=== PATIENT | female | born 1935 | race Caucasian/White ===

== ENCOUNTER 2017-03-12 19:38 | Inpatient (IN) ==
[~2017-03-12 19:38] MED LIST: *HR* Etomidate 20 MG/10 ML AMPUL IVP ONE; *HR* Rocuronium Bromide 100 MG/10 ML VIAL IVC ONE
[2017-03-12] MEDS ORDERED: Tetracaine/Benzocaine/Butamben 200MG/SPRAY (100SPY/BOT) ONE (19:57)
[2017-03-12] MEDS ORDERED: Tetracaine/Benzocaine/Butamben 200MG/SPRAY (100SPY/BOT) MM ONE (19:58)
[2017-03-12] MEDS ORDERED: Propofol 500 MG/50 ML INFUS..BTL ONE (20:21)
[2017-03-12] MEDS ORDERED: Propofol 500 MG/50 ML INFUS..BTL IVC SCH (20:30)
--- NOTE | 2017-03-12 20:38 | Emergency Department Note ---
Disposition Clinical Impression: Airway obstruction due to foreign body, Atrial fibrillation with rapid ventricular response Choking Qualifiers: Encounter type: initial encounter Qualified Code(s): T17.308A - Unspecified foreign body in larynx causing other injury, initial encounter Aspiration into airway Qualifiers: Encounter type: initial encounter Qualified Code(s): T17.908A - Unspecified foreign body in respiratory tract, part unspecified causing other injury, initial encounter Disposition: Admitted As Inpatient Condition: Critical Time of Disposition: 21:43 SOB HPI - General Chief Complaint: ED Shortness of Breath/Dyspnea Stated Complaint: choking/elevated HR Time Seen by Provider: 03/12/17 19:42 Source: patient, family, EMS Mode of arrival: EMS Limitations: physical limitation Nursing Notes Reviewed: Yes Vital Signs Reviewed: Yes - History of Present Illness 81-year-old female presents to the ED via EMS after choking episode. Prior to arrival patient was eating crabcakes, rice and broccoli and had a choking episode. Family reports she has a history of dysphasia difficulty with swallowing sometimes soft foods but also solid food. Per EMS and family reports she had a hard time speaking in the universal choking sign Heimlich maneuver was performed by the son and as well by EMS and reportedly a large piece of crab cake was successfully spit out. She continued to have difficulty breathing. EMS states her initial oxygen saturation was 70%. They performed 12 lead strip that also showed that she was in atrial fibrillation. She does have a history of this. On arrival here patient is on an oxymask maintaining 100% sitting up in no acute distress. She does have a stridor at rest with difficulty in speaking. No cyanosis. Lung sounds with bilateral wheezes and stridor. Oral examination showed some food particles that were successfully removed however she continue to have some strider. I attempted a flex bronchoscopy to evaluate which continued to show food particles in the oropharynx. We are unable to initially remove it with a suction [place]. After multiple attempts she continue to maintain 100% now on nasal cannula. Roughly 30 minutes into her observation she did desaturate and looked distressed , oxygen dropped to 70% and concern that may be the food particle had obstructed her airway. RSI performed with etomidate and rocuronium given, with CMAC I was able to visualize a large broccoli floret obstructing her airway, with Javier forceps was able to remove it in her oxygen saturation immediately improved. She was then intubated with a 7.5 endotracheal tube. EKG performed show that she was and atrial fibrillation with rapid ventricular response. She was placed on a cars and drip as well as propofol drip for sedation. We did not bolus to avoid hyptoension. Concern for aspiration she will likely require admission and likely bronchoscopy. Pt Subjective Complaint: shortness of breath - Related Data Allergies Allergy/AdvReac Type Severity Reaction Status Date / Time Sulfa (Sulfonamide Allergy See Verified 03/12/17 20:00 Antibiotics) Comments Limitations: ROS unobtainable due to patients medical condition Past Medical History - Past Medical History Attestation: Yes The following information was validated with the patient. Source: patient Medical history: Reports: atrial fibrillation, seizures Psychiatric history: Reports: no psych history - Social History Smoking Status: Never smoker Smokeless Tobacco Status: No Alcohol use: Reports: none Drug use: Reports: none Physical Exam - General Limitations: no limitations General appearance: alert, in distress (Moderate) - Head Head exam: atraumatic, normocephalic, normal inspection - Eye Eye exam: Present: normal appearance, PERRL, EOMI - ENT ENT exam: normal exam, normal oropharynx, other (Food particles in the oropharynx) - Neck Neck exam: Present: normal inspection, full ROM, trachea midline - Chest Chest inspection: Present: normal inspection, symmetric chest wall rise - Respiratory Respiratory exam: Present: normal lung sounds bilaterally, wheezes, stridor. Absent: respiratory distress (Initially no respiratory distress) - Cardiovascular Cardiovascular exam: Present: tachycardia, irregular rhythm, normal heart sounds - Abdominal Exam Abdominal exam: Present: normal bowel sounds - Neurological Exam Neurological exam: Present: alert, oriented X3 - Psychiatric Psychiatric exam: Present: normal affect, normal mood - Skin Skin exam: Present: warm, dry, intact, normal color. Absent: rash, cyanosis, diaphoresis Course - Reevaluation(s) Reevaluation #1: Patient was emergently intubated after desaturation and acute airway obstruction. There was a large broccoli floret seen obstructing her vocal cords. It was removed with forceps. She was then intubated without complications. Chest x-ray reveals adequate to placement. She is currently sedated and on a ventilator. She would need admission for concern of aspiration and further evaluation for possible bronchoscopy. She was also found incidentally and atrial fibrillation with rapid ventricular response. She was not given a bolus for placed on cars and trip, her heart rate has come down to the 110. She would need admission to the intensive care unit. No further questions for family. Time: 20:18 - Consultations Consultation #1: Spoke with on-call hospitalist gab Leiva to admit to intensive care unit for choking episode, airway obstruction from food, aspiration. No further orders at this time Time: 21:44 Vital Signs Temperature 97.7 F 03/12/17 19:41 Pulse Rate 140 03/12/17 19:41 Respiratory Rate 24 03/12/17 19:41 Blood Pressure 160/88 03/12/17 19:41 O2 Sat by Pulse Oximetry 88 03/12/17 19:41 Temperature 97.7 F 03/12/17 19:41 Pulse Rate 113 03/12/17 23:00 Respiratory Rate 14 03/12/17 20:25 Blood Pressure 142/84 03/12/17 23:00 O2 Sat by Pulse Oximetry 100 03/12/17 23:00 Oxygen Delivery Oxygen Delivery Ventilator Procedures - Foreign Body Removal Time Out Performed: No Site: oral Description of foreign body: other (Broccoli florettes) Technique: manual removal, removal with forceps (Javier) Confirmed by:: direct visualization Complications: none Post-procedure exam: normal BP, normal O2 sat - Intubation sedative: Etomidate Mg Given: 20 paralytic: Rocuronium Mg Given: 100 Laryngoscope: fiber optic video scope (CMAC) ET Tube Size: 7.5 ET Tube Uncuffed: No Tube Secured Depth (cm): 23 Tube Secured Location: lips Tube Placement Confirmation: visualized tube passing through cords, equal breath sounds bilaterally, no breath sounds over epigastrium, confirmation by capnometry Patient Tolerated Procedure: well, no complications, other (RIGHT UPPER LIP LAC) Intubation Complications: none, other (OBSTRUCTION) Shortness of Breath/Dyspnea - MDM Narrative Medical decision making narrative: Patient was discussed with my attending physician who agrees with ED management and final disposition. They independently evaluated the patient. Please refer to their attestation to this encounter for additional information. This note was generated by [employer] voice recognition software and as a result grammatical or spelling errors may occur using this program. - Medical Records Medical records reviewed: Yes I reviewed the patient's medical records. - Lab Data Lab results reviewed: Yes I reviewed the patient's lab results. Result diagrams: 03/12/17 20:33 03/12/17 20:33 Lab Results 03/12/17 03/12/17 03/12/17 Range/Units 20:33 20:33 20:33 WBC 9.9 (4.3-11.1) K/mcL RBC 4.18 (3.82-4.97) M/mcL Hgb 11.9 (11.5-15.4) g/dL Hct 37.2 (35.3-44.9) % MCV 89.0 (83.0-100.0) fL MCH 28.5 (28.0-33.3) pg MCHC 32.0 (31.6-35.5) g/dL RDW 13.2 (11.5-14.5) % Plt Count 174 (140-400) K/mcL MPV 11.9 (9.4-12.4) fL Immature Gran % 0.9 (0-4) % Seg Neutrophils % 82.3 % Lymphocytes % 11.9 % Monocytes % 3.0 % Eosinophils % 1.6 % Basophils % 0.3 % Neutrophils # 8.1 (1.6-8.9) K/mcL Lymphocytes # 1.2 (0.6-4.6) K/mcL Monocytes # 0.3 (0.0-1.3) K/mcL Eosinophils # 0.2 (0.0-0.6) K/mcL Basophils # 0.0 (0.0-0.2) K/mcL Sodium 139 (136-145) mEq/L Potassium 3.0 L (3.5-5.1) mEq/L Chloride 104 (98-107) mEq/L Carbon Dioxide 26 (23-29) mEq/L BUN 13 (8-23) mg/dL Creatinine 0.80 (0.60-1.20) mg/dL Est GFR ( Amer) > 60 (> 60) Est GFR (Non-Af Amer) > 60 (> 60) BUN/Creatinine Ratio 16 (6-26) Glucose 242 H (70-105) mg/dL Calculated Osmolality 296 (280-300) Lactic Acid 3.0 H (0.5-2.2) mmol/L Calcium 9.0 (8.6-10.3) mg/dL Troponin I (< 0.04) ng/mL 03/12/17 Range/Units 20:33 WBC (4.3-11.1) K/mcL RBC (3.82-4.97) M/mcL Hgb (11.5-15.4) g/dL Hct (35.3-44.9) % MCV (83.0-100.0) fL MCH (28.0-33.3) pg MCHC (31.6-35.5) g/dL RDW (11.5-14.5) % Plt Count (140-400) K/mcL MPV (9.4-12.4) fL Immature Gran % (0-4) % Seg Neutrophils % % Lymphocytes % % Monocytes % % Eosinophils % % Basophils % % Neutrophils # (1.6-8.9) K/mcL Lymphocytes # (0.6-4.6) K/mcL Monocytes # (0.0-1.3) K/mcL Eosinophils # (0.0-0.6) K/mcL Basophils # (0.0-0.2) K/mcL Sodium (136-145) mEq/L Potassium (3.5-5.1) mEq/L Chloride (98-107) mEq/L Carbon Dioxide (23-29) mEq/L BUN (8-23) mg/dL Creatinine (0.60-1.20) mg/dL Est GFR ( Amer) (> 60) Est GFR (Non-Af Amer) (> 60) BUN/Creatinine Ratio (6-26) Glucose (70-105) mg/dL Calculated Osmolality (280-300) Lactic Acid (0.5-2.2) mmol/L Calcium (8.6-10.3) mg/dL Troponin I < 0.03 (< 0.04) ng/mL - Radiology Data Radiology results reviewed: Yes I reviewed the patient's radiology results. Chest X-Ray 03/12/17 20:25 IMPRESSION: 1. Endotracheal tube 2 cm above the thong. 2. No acute process. D/ / Zack Batista MD / Zack Batista MD Interpreting Provider: Zack Batista MD - EKG Data EKG attestation: Yes I reviewed and interpreted this EKG. EKG results narrative: EKG performed 1945 atrial fibrillation with rapid ventricular response 1 25 bpm , no ST elevation, ST depression seen in V2 V3 and V4. There is no old EKG available for comparison. Critical Care Time Critical Care Time: Yes Total Critical Care Time: 60 Attestation: Critical care performed: Time is exclusive of separately billable procedures. Time includes: direct patient care, patient reassessment, coordination of patient care, interpretation of data (laboratory data, radiology data, and respiratory data), review of patient's medical records, medical consultation and documentation of patient care. Procedures included in critical care time: Procedures excluded from critical care time: Endotracheal intubation Attestation Statement - Attestation Attestation: I, Peter Richmond MD, personally evaluated this patient and discussed their management with the resident physician. I reviewed the resident's note and agree with the documented findings, medical decision making, and plan of care. 81-year-old female presents to the emergency department with difficulty breathing following a choking episode. Patient was apparently eating dinner restaurant when she became choked. She became unresponsive and was cyanotic. Heimlich was performed at the scene. Family reports she has a history of choking easily. On arrival here the patient is awake and alert with an oxygen saturation in the low to mid 90s on oxygen by mask. Patient continues to have stridor and is unable to talk and complains that it feels like the food is lodged in the area of the larynx. Difficulty swallowing. No vomiting. Patient is in atrial fibrillation with RVR. She does have a previous history of atrial fibrillation and is anticoagulated on Pradaxa. On examination patient is a well-developed thin elderly female in mild respiratory distress. She is alert with no cyanosis or diaphoresis. Patient does have small food particles throughout her mouth and throat. She was suctioned with removal of some of these particles but no change in her respiratory status. Breath sounds are equal bilaterally with stridor. No rales or wheezes noted. Heart is tachycardic and irregularly irregular. No peripheral cyanosis. We attempted visualization of the area with a flexible scope. There did appear to be a large green mass in the hypopharynx area. Some of movement of air noted around this area on expiration. Unable to suction this out. Patient developed increased stridor and increased difficulty breathing and her oxygen saturations began to drop. RSI was performed with etomidate and rocuronium. On direct visualization a large complete broccoli florette was removed from the vallecular area obstructing the cords. Patient was then intubated with a #7 endotracheal tube. Placed on propofol infusion for sedation. Chest x-ray shows endotracheal tube 2 cm above the thong, otherwise no acute abnormality. Labs reviewed. Patient was placed on a Cardizem infusion for the atrial fibrillation with RVR. The hospitalist, Dr. Serrano, was consulted and accepted admission of the patient.
[2017-03-12 20:40] LABS: Basophils % 0.3 %; Eosinophils # 0.2 K/mcL (0.0-0.6); Eosinophils % 1.6 %; Hematocrit 37.2 % (35.3-44.9); Hemoglobin 11.9 g/dL (11.5-15.4); Immature Granulocytes % 0.9 % (0-4); Lymphocytes # 1.2 K/mcL (0.6-4.6); Lymphocytes % 11.9 %; Mean Corpuscular Hemoglobin 28.5 pg (28.0-33.3); Mean Platelet Volume 11.9 fL (9.4-12.4); Monocytes # 0.3 K/mcL (0.0-1.3); Neutrophils # 8.1 K/mcL (1.6-8.9); Platelet Count 174 K/mcL (140-400); Red Blood Count 4.18 M/mcL (3.82-4.97); Red Cell Distribution Width 13.2 % (11.5-14.5); Segmented Neutrophils % 82.3 %
[2017-03-12] MEDS ORDERED: *HR* Etomidate 20 MG/10 ML AMPUL IVP ONE (20:50)
[2017-03-12] MEDS ORDERED: *HR* Rocuronium Bromide 50 MG/5 ML VIAL IVP ONE ×2 (20:51→20:52)
[2017-03-12 20:54] LABS: BUN/Creatinine Ratio 16 (6-26); Blood Urea Nitrogen 13 mg/dL (8-23); Carbon Dioxide 26 mEq/L (23-29); Chloride 104 mEq/L (98-107); Glucose 242 mg/dL (70-105); Osmolality,Calculated 296 (280-300); Sodium 139 mEq/L (136-145); eGFR For African Americans > 60 (> 60); eGFR For Non-African Americans > 60 (> 60)
[2017-03-12] MEDS ORDERED: Ampicillin/Sulbactam 1,500 MG in 0.9 % Sodium Chloride Mini Bag 100 ML IVPB ONE (21:41)
[2017-03-12] MEDS: dilTIAZem HCl 100 MG in D5% in Water 50 ML IVC SCH (21:56)
[2017-03-12] MEDS ORDERED: Naloxone 0.4 MG/ML INJ IVP PRN (23:50)
[2017-03-12] MEDS ORDERED: Acetaminophen 650 MG RECTAL SUPP RC PRN (23:55)
[2017-03-13 00:37] LABS: Alanine Aminotransferase 20 Units/L (7-52); Albumin 3.7 g/dL (3.5-5.7); Albumin/Globulin Ratio 1.3 (1.1-2.2); Alkaline Phosphatase 58 Units/L (34-104); Aspartate Amino Transferase 27 Units/L (13-39); BUN/Creatinine Ratio 16 (6-26); Bilirubin,Total 0.6 mg/dL (0.3-1.0); Blood Urea Nitrogen 13 mg/dL (8-23); Carbon Dioxide 26 mEq/L (23-29); Chloride 105 mEq/L (98-107); Globulin 2.8 g/dL (2.4-3.5); Glucose 214 mg/dL (70-105); Osmolality,Calculated 295 (280-300); Potassium 3.1 mEq/L (3.5-5.1); Sodium 139 mEq/L (136-145); Total Protein 6.5 g/dL (6.4-8.9); eGFR For African Americans > 60 (> 60); eGFR For Non-African Americans > 60 (> 60)
[2017-03-13] MEDS: FentaNYL (PF) 1,000 MCG in 0.9 % Sodium Chloride 80 ML IVC SCH ×2 (00:53→22:34)
[2017-03-13] MEDS: Ampicillin/Sulbactam 3,000 MG in 0.9 % Sodium Chloride Mini Bag 100 ML IVPB SCH ×3 (01:00→18:25)
--- NOTE | 2017-03-13 01:52 | Internal Med History&Physical ---
Date of Encounter: 03/12/17 Time of Encounter: 23:45 Assessment and Plan (1) Choking Current visit: Yes Status: Acute Pt was intubated and her respiratory parameter is well maintained with ventilator. - Pt may need swallow evaluation after extubation. Total critical care time 40 min including Hx, physical, review of test results and home medication, medical decision making. Qualifiers: Encounter type: initial encounter Qualified Code(s): T17.308A - Unspecified foreign body in larynx causing other injury, initial encounter (2) Airway obstruction due to foreign body Current visit: Yes Status: Acute Management as above. Will consult pulmonary to see if pt needs bronchoscope as ER physician said there are small pieces of food still in airway. (3) Aspiration into airway Current visit: Yes Status: Acute Will start Unasyn iv for aspiration pneumonia, f/u CBC. Qualifiers: Encounter type: initial encounter Qualified Code(s): T17.908A - Unspecified foreign body in respiratory tract, part unspecified causing other injury, initial encounter (4) Atrial fibrillation with rapid ventricular response Current visit: Yes Status: Acute Pt may have hx of A Fib as family said she has irregular heart beats and pt is on pradaxa as home med. Will cont Cardizem drip. Hold AC for possible bronchoscope. (5) DVT prophylaxis Current visit: Yes Status: Acute Pt is on pradaxa at home, hold pradaxa for possible bronchoscope. Last dose was AM 03/12/17. On EPCD Internal Medicine - H&P: HPI Chief complaint: Chocking Admitted From: Home Plans for Post Hospital Care: Home History of present illness: Ms. Garcia is a 81 year old female with Hx of "IgG4 autoimmune disease", "irregular heart beat", present to ER for choking on eating. Pt was intubated immediately in ER and Hx is obtained from daughter. Pt has chronic swallowing problem. Pt has sudden choking at 6:45pm, cannot talk and passed out. Ineffective with family member immediate chocking maneuver. Pt was sent to ER and was intubated. One large piece of Broccoli was removed from upper airway during intubation. Pt also shows A Fib RVR upon arrival. Cardizem drip started after intubation. Past Med Surg Social Fam HX - Past Medical History Medical history: atrial fibrillation, seizures Psychiatric history: no psych history - Social History Smoking Status: Never smoker Smokeless Tobacco Status: No Alcohol use: none Drug use: none - Family History Mother History Unknown: Yes Internal Medicine - H&P: Meds 3 Allergy/AdvReac Type Severity Reaction Status Date / Time Sulfa (Sulfonamide Allergy See Verified 03/12/17 20:00 Antibiotics) Comments ROS unobtainable: due to endotracheal tube All Systems PM: A 10-system review of systems was performed and is negative for pertinent findings except as documented above in the HPI. - Constitutional Vitals: Temp Pulse Resp BP Pulse Ox 96.5 F L 68 12 92/51 100 03/12/17 23:22 03/13/17 01:02 03/13/17 01:02 03/13/17 01:02 03/13/17 01:02 General appearance: Present: A&O X 0, no acute distress Exam: Intubated - Head Head exam: Present: atraumatic, normocephalic - Eye Eye exam: Present: PERRL, conjuntiva pink, sclera anicteric Pupils: Present: PERRL - Neck Neck exam general surgery: Present: supple, trachea midline. Absent: lymphadenopathy - Respiratory Respiratory exam: Present: CTAB. Absent: accessory muscle use, rales, rhonchi, wheezes - Cardiovascular Cardiovascular exam: Present: irregular rhythm, +S1, +S2, tachycardia. Absent: diastolic murmur, gallop, rubs, systolic murmur - GI/Abdominal GI/Abdominal exam: Present: normal bowel sounds, soft, no peritoneal signs. Absent: distended, tenderness - Extremities Exam Extremities exam: Present: warm, radial pulses palpable and symmetrical. Absent : calf tenderness, cyanotic, pedal edema - Neurological Exam Neurological exam: Absent: facial droop - Skin Skin exam: Present: dry, intact Internal Med - H&P Results - Labs CBC & Chem 7: 03/12/17 20:33 03/13/17 00:17 Labs: BMP 03/13/17 00:17 Sodium 139 Potassium 3.1 L Chloride 105 Carbon Dioxide 26 BUN 13 Creatinine 0.80 Glucose 214 H Calcium 9.0 Liver Function 03/13/17 Range/Units 00:17 Total Bilirubin 0.6 (0.3-1.0) mg/dL AST 27 (13-39) Units/L ALT 20 (7-52) Units/L Alkaline Phosphatase 58 (34-104) Units/L Albumin 3.7 (3.5-5.7) g/dL - EKG Data -: EKG Interpreted by Myself Rate: tachycardia (A fib RVR) - VTE Documentation of Mechanical Device: Intermittent pneumatic compression device
[2017-03-13] MEDS ORDERED: Potassium Chloride 40 MEQ, Lidocaine 1% 2 ML in D5% in Water 500 ML IVPB ONE (01:55)
[2017-03-13] MEDS ORDERED: 0.9 % Sodium Chloride 500 ML IVC ONE (02:16)
[2017-03-13] MEDS ORDERED: 0.9 % Sodium Chloride 500 ML ONE (02:18)
[2017-03-13 04:42] LABS: Basophils % 0.1 %; Eosinophils % 0.2 %; Immature Granulocytes % 0.4 % (0-4); Lymphocytes # 1.1 K/mcL (0.6-4.6); Lymphocytes % 12.4 %; Mean Corpuscular HGB Conc 31.5 g/dL (31.6-35.5); Mean Corpuscular Hemoglobin 27.8 pg (28.0-33.3); Mean Corpuscular Volume 88.2 fL (83.0-100.0); Mean Platelet Volume 11.8 fL (9.4-12.4); Monocytes # 0.7 K/mcL (0.0-1.3); Monocytes % 8.3 %; Neutrophils # 6.7 K/mcL (1.6-8.9); Platelet Count 146 K/mcL (140-400); Red Blood Count 3.74 M/mcL (3.82-4.97); Red Cell Distribution Width 13.3 % (11.5-14.5); Segmented Neutrophils % 78.6 %
[2017-03-13 04:44] LABS: Hemoglobin 10.4 g/dL (11.5-15.4)
[2017-03-13 04:58] LABS: Magnesium 1.6 mg/dL (1.6-2.6)
[2017-03-13 05:12] LABS: Thyroid Stimulating Hormone 4.049 mcIU/mL (0.340-5.600)
[2017-03-13] MEDS ORDERED: Ketorolac 15 MG/ML VIAL IVP PRN (11:15)
[2017-03-13] MEDS: *HR* Metoprolol 5 MG/5 ML VIAL IVP PRN (11:38)
--- NOTE | 2017-03-13 11:45 | Pulmonology Consult Note ---
Date of Encounter: 03/13/17 Time of Encounter: 07:05 Assessment and Plan (1) Acute respiratory failure Current Visit: Yes Status: Resolved Patient was intubated for airway protection and after bronchoscopy patient was extubated successfully. Patient needs to remain in ICU for close monitoring since she is still complaining of difficulty swallowing and concern about upper airway obstruction. Discussed with the daughter at the bedside. Qualifiers: Respiratory failure complication: unspecified whether with hypoxia or hypercapnia Qualified Code(s): J96.00 - Acute respiratory failure, unspecified whether with hypoxia or hypercapnia (2) Choking Current Visit: Yes Status: Chronic This need to be investigated especially with questionable Parkinson disease and patient will need swallowing evaluation. Qualifiers: Encounter type: initial encounter Qualified Code(s): T17.308A - Unspecified foreign body in larynx causing other injury, initial encounter (3) Aspiration into airway Current Visit: Yes Status: Resolved Qualifiers: Encounter type: initial encounter Qualified Code(s): T17.908A - Unspecified foreign body in respiratory tract, part unspecified causing other injury, initial encounter (4) Atrial fibrillation with rapid ventricular response Current Visit: Yes Status: Chronic Patient will be treated with metoprolol and resume her anticoagulation and correct electrolytes. (5) Hypokalemia Current Visit: Yes Status: Acute This is mild hypokalemia and replace electrolytes. History of Present Illness Consult date: 03/13/17 Requesting physician: Sandra Serrano Reason for consult: other (Critical care management) Chief complaint: Choking History of present illness: This is a pleasant 81-year-old female who was intubated after choking episode while she was eating and she is communicating through writing and also daughter at the bedside. Patient has questionable Parkinson disease and she has chronic atrial fibrillation. Patient has chronic swallowing problems and she had sudden choking and then they were attempted to remove broccoli from upper airway and she is complaining from chest pain from attempting Heimlich maneuver. Patient denies any fever or chills and there is no other significant complaints or problems at this time. According to the daughter patient sometimes does not talk because of the discomfort and pain in her throat area. Past Med Surg Social Fam HX - Past Medical History Medical history: atrial fibrillation, seizures Psychiatric history: no psych history - Social History Smoking Status: Never smoker Smokeless Tobacco Status: No Alcohol use: none Drug use: none - Family History Mother History Unknown: Yes Medications and Allergies Bisoprolol Fumarate 2.5 mg PO DAILY 03/13/17 [History] Budesonide [Rhinocort Allergy] 1 spr NS DAILY 03/13/17 [History] Calcium Carbonate [Tums] 1,000 mg PO DAILY 03/13/17 [History] Cholecalciferol (Vitamin D3) [Vitamin D] 1,000 unit PO DAILY 03/13/17 [History] Dabigatran Etexilate Mesylate [Pradaxa] 110 mg PO BID 03/13/17 [History] Travoprost [Travatan Z] 1 drop OP HS 03/13/17 [History] 3 Allergy/AdvReac Type Severity Reaction Status Date / Time Sulfa (Sulfonamide Allergy See Verified 03/12/17 20:00 Antibiotics) Comments All Systems: A 10-system review of systems was performed and is negative for pertinent findings except as documented above in the HPI. Physical Examination Vital Signs: Vital Signs, Last 4 Hours Temp Pulse Resp BP Pulse Ox 03/13/17 11:00 128 10 125/71 100 03/13/17 10:02 16 127/108 100 03/13/17 10:01 99 03/13/17 10:00 81 12 129/60 100 03/13/17 09:00 79 12 118/71 100 03/13/17 08:07 16 132/66 99 03/13/17 08:00 98.9 F 77 12 100/60 100 General appearance: appears uncomfortable Eyes: nonicteric ENT: oropharynx moist Neck: supple Effort: normal Inspection: normal Auscultation: bilateral: clear Percussion: bilateral: not dull Cardiovascular: irregular rhythm Gastrointestinal: normoactive bowel sounds, non-distended Extremities: no cyanosis, edema Musculoskeletal: other (Left shoulder deformity) normal mental status, non-focal exam mood appropriate Ventilator Settings Ventilator Settings: Ventilator Settings, Last 8 Hours Ventilator Mode CPAP Ventilator Mode CPAP Ventilator Mode VC+ Ventilator Mode VC+ Ventilator Mode VC+ Ventilator Mode VC+ Ventilator Tidal Volume 400 Setting Ventilator Tidal Volume 400 Setting Ventilator Tidal Volume 400 Setting Ventilator Tidal Volume 400 Setting Ventilator Respiratory Rate 12 Setting Ventilator Respiratory Rate 12 Setting Ventilator Respiratory Rate 12 Setting Ventilator Respiratory Rate 12 Setting Actual Respiratory Rate 17 Actual Respiratory Rate 12 Actual Respiratory Rate 12 Actual Respiratory Rate 15 Actual Respiratory Rate 12 Actual Respiratory Rate 12 Actual Respiratory Rate 12 Actual Respiratory Rate 12 Actual Respiratory Rate 12 Positive End Expiratory 5 Pressure Positive End Expiratory 5 Pressure Positive End Expiratory 5 Pressure Positive End Expiratory 5 Pressure Positive End Expiratory 5 Pressure Positive End Expiratory 5 Pressure Positive End Expiratory 5 Pressure Positive End Expiratory 5 Pressure Peak Inspiratory Airway 11 Pressure Peak Inspiratory Airway 26 Pressure Peak Inspiratory Airway 30 Pressure Peak Inspiratory Airway 21 Pressure Results - Laboratory Findings CBC and BMP: 03/13/17 04:33 03/13/17 10:47 Abnormal lab findings: Abnormal lab results RBC 3.74 M/mcL (3.82-4.97) L 03/13/17 04:33 Hgb 10.4 g/dL (11.5-15.4) L D 03/13/17 04:33 Hct 33.0 % (35.3-44.9) L 03/13/17 04:33 MCH 27.8 pg (28.0-33.3) L 03/13/17 04:33 MCHC 31.5 g/dL (31.6-35.5) L 03/13/17 04:33 Glucose 214 mg/dL (70-105) H 03/13/17 00:17 POC Glucose 198 (58-89) H 03/13/17 05:31 Lactic Acid 2.5 mmol/L (0.5-2.2) H 03/13/17 04:33 - Diagnostic Findings Chest x-ray: report reviewed, image reviewed - Clinical Findings Intake & Output: Intake & Output 03/12/17 03/13/17 03/13/17 23:59 07:59 15:59 Intake Total 1220 / 1220 1000 / 1000 Output Total 400 / 400 125 / 125 Balance 820 / 820 875 / 875 Weight 52.5 kg Consult Discharge Plan - Plan Referrals: NONE,PCP [Primary Care Provider] -
[2017-03-13 15:04] LABS: Appearance of Body Fluid Slightly Hazy (Clear); Volume of Body Fluid 7 mL
[2017-03-13] MEDS: dilTIAZem HCl 100 MG in D5% in Water 50 ML IVC SCH (17:43)
[2017-03-14] MEDS: Ampicillin/Sulbactam 3,000 MG in 0.9 % Sodium Chloride Mini Bag 100 ML IVPB SCH ×4 (00:42→18:18)
[2017-03-14 02:48] LABS: Hematocrit 33.8 % (35.3-44.9); Hemoglobin 11.1 g/dL (11.5-15.4); Mean Corpuscular HGB Conc 32.8 g/dL (31.6-35.5); Mean Corpuscular Hemoglobin 28.7 pg (28.0-33.3); Mean Corpuscular Volume 87.3 fL (83.0-100.0); Mean Platelet Volume 11.5 fL (9.4-12.4); Platelet Count 121 K/mcL (140-400); Red Blood Count 3.87 M/mcL (3.82-4.97); Red Cell Distribution Width 13.4 % (11.5-14.5)
[2017-03-14 03:06] LABS: BUN/Creatinine Ratio 12 (6-26); Blood Urea Nitrogen 9 mg/dL (8-23); Calcium 8.9 mg/dL (8.6-10.3); Carbon Dioxide 30 mEq/L (23-29); Chloride 106 mEq/L (98-107); Glucose 119 mg/dL (70-105); Osmolality,Calculated 288 (280-300); Potassium 3.5 mEq/L (3.5-5.1); Sodium 139 mEq/L (136-145); eGFR For African Americans > 60 (> 60); eGFR For Non-African Americans > 60 (> 60)
[2017-03-14] MEDS: *HR* Metoprolol 5 MG/5 ML VIAL IVP PRN (05:03)
[2017-03-14] MEDS: dilTIAZem HCl 100 MG in D5% in Water 50 ML IVC SCH (08:14)
--- NOTE | 2017-03-14 10:25 | Electrocardiograph Report ---
[address] [place], [place] [address] Test Date: 2017-03-12 Pat Name: Marlene Garcia Department: 102 Room: [facility] Gender: F Data Management Engineer: María Elena : 1935 Requested By: Nii Pedro Order Number: [id number] Reading MD: Gavin Granados MD Measurements Intervals [place] Rate: 125 P: MN: 0 QRS: -5 QRSD: 96 T: 30 QT: 343 QTc: 417 Interpretive Statements BASELINE ARTIFACT COMPLICATES ACCURATE INTERPRETATION ATRIAL FIBRILLATION WITH RAPID VENTRICULAR RESPONSE Electronically Signed On 03-14-2017 10:23:46 EST by Gavin Granados MD
[2017-03-14] MEDS: Potassium Chloride Elixir 20 MEQ/15 ML UDC PO SCH (10:27)
--- NOTE | 2017-03-14 12:13 | Pulmonology Progress Note ---
Date of Encounter: 03/14/17 Time of Encounter: 11:45 Assessment and Plan (1) Aspiration into airway Current Visit: Yes Status: Resolved Patient has high risk of recurrent aspiration will do modified barium swallow will follow speech recommendations , patient tolerated well the extubation no clinical evidence of upper airway obstruction. Qualifiers: Encounter type: initial encounter Qualified Code(s): T17.908A - Unspecified foreign body in respiratory tract, part unspecified causing other injury, initial encounter (2) Atrial fibrillation with rapid ventricular response Current Visit: Yes Status: Chronic Patient still on Cardizem drip since patient is not cleared PO will schedule lopressor 5 mg Q6hrly once she is cleared for PO will change to PO lopressor . (3) Acute respiratory failure Current Visit: Yes Status: Resolved Patient hypoxic respiratory failure contributed by some fluid overload diastolic dysfunction secondary to A fib with RVR if stable will start diuresing her Qualifiers: Respiratory failure complication: hypoxia Qualified Code(s): J96.01 - Acute respiratory failure with hypoxia (4) Hypokalemia Current Visit: Yes Status: Acute Will replace electrolytes . (5) DVT prophylaxis Current Visit: Yes Status: Acute will start on Heparin on discharge she should be discharged on pradaxa or if the acute situation is settled can start pradax as in patient. Objective PUL Vital signs: Last Vital Signs Temp 98.3 F 03/14/17 11:59 Pulse 85 03/14/17 10:24 Resp 12 03/14/17 10:24 BP 121/67 03/14/17 10:24 Pulse Ox 99 03/14/17 10:24 Results - Laboratory Findings CBC and BMP: 03/14/17 02:38 03/14/17 02:38 Abnormal lab findings: Abnormal lab results Hgb 11.1 g/dL (11.5-15.4) L 03/14/17 02:38 Hct 33.8 % (35.3-44.9) L 03/14/17 02:38 Plt Count 121 K/mcL (140-400) L 03/14/17 02:38 Carbon Dioxide 30 mEq/L (23-29) H 03/14/17 02:38 Glucose 119 mg/dL (70-105) H 03/14/17 02:38 POC Glucose 108 (58-89) H 03/14/17 11:20 Lactic Acid 2.5 mmol/L (0.5-2.2) H 03/13/17 04:33 Fluid Appearance Slightly Hazy (Clear) A 03/13/17 09:05 - Microbiology Findings Microbiology Findings: Microbiology, Last 48 Hours 03/13/17 09:05 Gram Stain - Final Right Lower Lobe Lung - Clinical Findings Intake & Output: Intake & Output 03/13/17 03/14/17 03/14/17 23:59 07:59 15:59 Intake Total 100 / 100 1200 / 1200 43 / 43 Output Total 925 / 925 2200 / 2200 1000 / 1000 Balance -825 / -825 -1000 / -1000 -957 / -957 - VTE Documentation of Mechanical Device: Intermittent pneumatic compression device Consult Discharge Plan - Plan Referrals: NONE,PCP [Primary Care Provider] -
[2017-03-14] MEDS: *HR* Metoprolol 5 MG/5 ML VIAL IVP SCH ×2 (12:49→18:45)
[2017-03-14] MEDS: *HR* Heparin 5,000 UNIT/ML VIAL SQ SCH (18:45)
[2017-03-15] MEDS: *HR* Metoprolol 5 MG/5 ML VIAL IVP SCH ×2 (00:22→05:30)
[2017-03-15] MEDS: Ampicillin/Sulbactam 3,000 MG in 0.9 % Sodium Chloride Mini Bag 100 ML IVPB SCH ×3 (00:22→12:59)
[2017-03-15 05:28] LABS: Basophils % 0.4 %; Eosinophils # 0.3 K/mcL (0.0-0.6); Hematocrit 34.7 % (35.3-44.9); Immature Granulocytes % 0.4 % (0-4); Lymphocytes # 0.7 K/mcL (0.6-4.6); Lymphocytes % 10.6 %; Mean Corpuscular HGB Conc 31.7 g/dL (31.6-35.5); Mean Corpuscular Hemoglobin 27.6 pg (28.0-33.3); Monocytes # 0.6 K/mcL (0.0-1.3); Monocytes % 9.2 %; Neutrophils # 5.1 K/mcL (1.6-8.9); Platelet Count 128 K/mcL (140-400); Red Blood Count 3.99 M/mcL (3.82-4.97); Red Cell Distribution Width 13.4 % (11.5-14.5); Segmented Neutrophils % 75.4 %
[2017-03-15] MEDS: *HR* Heparin 5,000 UNIT/ML VIAL SQ SCH ×2 (05:36→18:01)
[2017-03-15 05:41] LABS: BUN/Creatinine Ratio 12 (6-26); Blood Urea Nitrogen 8 mg/dL (8-23); Calcium 8.4 mg/dL (8.6-10.3); Carbon Dioxide 28 mEq/L (23-29); Chloride 103 mEq/L (98-107); Glucose 103 mg/dL (70-105); Osmolality,Calculated 281 (280-300); Potassium 3.4 mEq/L (3.5-5.1); Sodium 136 mEq/L (136-145); eGFR For African Americans > 60 (> 60); eGFR For Non-African Americans > 60 (> 60)
--- NOTE | 2017-03-15 06:59 | Pulmonology Progress Note ---
<GeorgeRonn lee - Last Filed: 03/15/17 13:01> Date of Encounter: 03/15/17 Time of Encounter: 06:58 Assessment and Plan (1) Aspiration into airway Current Visit: Yes Status: Resolved Patient choked on food at home prompting admission treating for aspiration pneumonia with Unasyn day 3/ Speech on board Currently on Advnaced soft diet with nectar thickened liquids Plan: continue diet Speech on board appreciate any recommendations continue abx Qualifiers: Encounter type: initial encounter Qualified Code(s): T17.908A - Unspecified foreign body in respiratory tract, part unspecified causing other injury, initial encounter (2) Atrial fibrillation with rapid ventricular response Current Visit: Yes Status: Chronic Pt started on cardiazem drip. Drip stopped yesterday now just on metoprolol for rate control Plan: Convert IV metoprolol to PO (3) Acute respiratory failure Current Visit: Yes Status: Resolved likley 2/2 to aspiration/airway obstruction from choking episode complicated by acute diastolic dysfunction 2/2 a fib c RVR. Qualifiers: Respiratory failure complication: hypoxia Qualified Code(s): J96.01 - Acute respiratory failure with hypoxia (4) Hypokalemia Current Visit: Yes Status: Acute Patient found to by hypokalemic on admission to 3.0 K supplementation initiated. K 3.4 this morning. Plan: continue to supplement as needed (5) DVT prophylaxis Current Visit: Yes Status: Acute Pt on SubQ heparin Plan: continue sub Q heparin Restarted patient's home Pradaxa. Subjective Principal diagnosis: Choking/aspiration, Afib Interval history: 81F c PMHx a fib, seizures, possible parkinson's disease reports to [facility] for episode of choking/aspiration leading to acute respiratory failure, and a fib with RVR. Today patient was cleared for mechanical soft diet with nectar thick liquids. Her HR is well controlled on oral medications. She is stable for transfer out of the ICU. Objective PUL Vital signs: Last Vital Signs Temp 97.6 F 03/15/17 03:55 Pulse 74 03/15/17 06:00 Resp 18 03/15/17 06:00 BP 128/105 03/15/17 00:35 Pulse Ox 90 03/15/17 06:00 General appearance: no acute distress Eyes: nonicteric ENT: oropharynx moist, other (voice hoarse) Neck: supple Effort: normal Auscultation: bilateral: clear Cardiovascular: irregular rhythm Gastrointestinal: normoactive bowel sounds, soft, non-tender, non-distended Integumentary: normal Extremities: no cyanosis Musculoskeletal: no deformities normal mental status, non-focal exam mood appropriate, affect normal Results - Laboratory Findings CBC and BMP: 03/15/17 05:08 03/15/17 05:08 Abnormal lab findings: Abnormal lab results Hgb 11.0 g/dL (11.5-15.4) L 03/15/17 05:08 Hct 34.7 % (35.3-44.9) L 03/15/17 05:08 MCH 27.6 pg (28.0-33.3) L 03/15/17 05:08 Plt Count 128 K/mcL (140-400) L 03/15/17 05:08 Potassium 3.4 mEq/L (3.5-5.1) L 03/15/17 05:08 POC Glucose 108 (58-89) H 03/15/17 05:39 Lactic Acid 2.5 mmol/L (0.5-2.2) H 03/13/17 04:33 Calcium 8.4 mg/dL (8.6-10.3) L 03/15/17 05:08 Fluid Appearance Slightly Hazy (Clear) A 03/13/17 09:05 - Microbiology Findings Microbiology Findings: Microbiology, Last 48 Hours 03/13/17 09:05 Respiratory Culture - Preliminary Right Lower Lobe Lung Normal upper respiratory tract elaine. No apparent pathogens isolated. 03/13/17 09:05 Gram Stain - Final Right Lower Lobe Lung - Clinical Findings Intake & Output: Intake & Output 03/14/17 03/14/17 03/15/17 15:59 23:59 07:59 Intake Total 1143 / 1143 100 / 100 1200 / 1200 Output Total 1175 / 1175 0 / 0 0 / 0 Balance -32 / -32 100 / 100 1200 / 1200 Weight 53.9 kg - VTE Documentation of Mechanical Device: Intermittent pneumatic compression device Consult Discharge Plan - Plan Referrals: NONE,PCP [Primary Care Provider] - <Sandoval Zaidi - Last Filed: 03/15/17 20:55> Date of Encounter: 03/15/17 Assessment and Plan (1) Aspiration into airway Current Visit: Yes Status: Resolved Qualifiers: Encounter type: initial encounter Qualified Code(s): T17.908A - Unspecified foreign body in respiratory tract, part unspecified causing other injury, initial encounter (2) Atrial fibrillation with rapid ventricular response Current Visit: Yes Status: Chronic (3) Acute respiratory failure Current Visit: Yes Status: Resolved Qualifiers: Respiratory failure complication: hypoxia Qualified Code(s): J96.01 - Acute respiratory failure with hypoxia (4) Hypokalemia Current Visit: Yes Status: Acute (5) DVT prophylaxis Current Visit: Yes Status: Acute Objective PUL Vital signs: Last Vital Signs Temp 97.9 F 03/15/17 19:54 Pulse 80 03/15/17 19:54 Resp 16 03/15/17 19:54 BP 137/71 03/15/17 19:54 Pulse Ox 94 03/15/17 19:54 Results - Laboratory Findings CBC and BMP: 03/15/17 05:08 03/15/17 05:08 Abnormal lab findings: Abnormal lab results Hgb 11.0 g/dL (11.5-15.4) L 03/15/17 05:08 Hct 34.7 % (35.3-44.9) L 03/15/17 05:08 MCH 27.6 pg (28.0-33.3) L 03/15/17 05:08 Plt Count 128 K/mcL (140-400) L 03/15/17 05:08 Potassium 3.4 mEq/L (3.5-5.1) L 03/15/17 05:08 POC Glucose 124 (58-89) H 03/15/17 11:38 Lactic Acid 2.5 mmol/L (0.5-2.2) H 03/13/17 04:33 Calcium 8.4 mg/dL (8.6-10.3) L 03/15/17 05:08 Fluid Appearance Slightly Hazy (Clear) A 03/13/17 09:05 - Microbiology Findings Microbiology Findings: Microbiology, Last 48 Hours 03/13/17 09:05 Respiratory Culture - Final Right Lower Lobe Lung Normal upper respiratory tract elaine. No apparent pathogens isolated. - Clinical Findings Intake & Output: Intake & Output 03/15/17 03/15/17 03/15/17 07:59 15:59 23:59 Intake Total 1200 / 1200 1220 / 1220 0 / 0 Output Total 0 / 0 300 / 300 0 / 0 Balance 1200 / 1200 920 / 920 0 / 0 Weight 53.9 kg 54 kg - Attending Attestation I saw the patient with the resident agree with History and Physical exam findings. Labs and Radiology were reviewed POTAT[employer]ER: Patient is conscious oriented x3 following commands NECK : No JVD appreciated Pulmonary : Patient hypoxic respiratory failure is resolved patient currently on room air Cardiac : Hemodynamically stable . Atrial fibrillation on PO medications Nutrition/GI: Patient is on thickened diet according to speech recommendations Renal : Labs reviewed Heme onc : no acute issues ID : Will deescalate antibiotics Musculo skeletal / skin issues : No acute issues Disposition : Will shift to Medical telemetry , will need PT/OT evaluation before discharge Code status: Full Code Family/POA: Daughter .
[2017-03-15] MEDS ORDERED: Pantoprazole 40 MG VIAL IVP SCH (07:30)
[2017-03-15] MEDS: Potassium Chloride Elixir 20 MEQ/15 ML UDC PO SCH (09:13)
[2017-03-15] MEDS ORDERED: *HR* Dabigatran 75 MG CAPSULE PO SCH (11:00)
[2017-03-15] MEDS: dilTIAZem HCl 100 MG in D5% in Water 50 ML IVC SCH ×2 (13:51→21:59)
[2017-03-15] MEDS ORDERED: Ampicillin/Sulbactam 3,000 MG in 0.9 % Sodium Chloride Mini Bag 100 ML IVPB SCH (18:20)
[2017-03-15] MEDS ORDERED: Ketorolac 15 MG/ML VIAL IVP PRN (18:23)
[2017-03-15] MEDS ORDERED: Naloxone 0.4 MG/ML INJ IVP PRN (18:23)
[2017-03-15] MEDS ORDERED: Acetaminophen 650 MG RECTAL SUPP RC PRN (18:23)
[2017-03-15] MEDS: *HR* Dabigatran 75 MG CAPSULE PO SCH (21:53)
[2017-03-16] MEDS ORDERED: *HR* Heparin 5,000 UNIT/ML VIAL SQ SCH (06:00)
[2017-03-16 06:58] LABS: BUN/Creatinine Ratio 11 (6-26); Blood Urea Nitrogen 7 mg/dL (8-23); Calcium 8.6 mg/dL (8.6-10.3); Carbon Dioxide 31 mEq/L (23-29); Chloride 104 mEq/L (98-107); Glucose 131 mg/dL (70-105); Osmolality,Calculated 292 (280-300); Sodium 141 mEq/L (136-145); eGFR For African Americans > 60 (> 60); eGFR For Non-African Americans > 60 (> 60)
[2017-03-16 07:23] LABS: Basophils % 0.3 %; Eosinophils # 0.3 K/mcL (0.0-0.6); Eosinophils % 4.9 %; Hematocrit 35.2 % (35.3-44.9); Hemoglobin 11.4 g/dL (11.5-15.4); Immature Granulocytes % 0.2 % (0-4); Lymphocytes # 0.9 K/mcL (0.6-4.6); Lymphocytes % 14.7 %; Mean Corpuscular HGB Conc 32.4 g/dL (31.6-35.5); Mean Corpuscular Hemoglobin 27.9 pg (28.0-33.3); Mean Corpuscular Volume 86.3 fL (83.0-100.0); Mean Platelet Volume 12.4 fL (9.4-12.4); Monocytes # 0.6 K/mcL (0.0-1.3); Monocytes % 9.3 %; Neutrophils # 4.2 K/mcL (1.6-8.9); Platelet Count 138 K/mcL (140-400); Red Blood Count 4.08 M/mcL (3.82-4.97); Red Cell Distribution Width 13.2 % (11.5-14.5); Segmented Neutrophils % 70.6 %
[2017-03-16] MEDS: Pantoprazole 40 MG VIAL IVP SCH (09:22)
[2017-03-16] MEDS: *HR* Dabigatran 75 MG CAPSULE PO SCH (09:22)
[2017-03-16] MEDS: Potassium Chloride Elixir 20 MEQ/15 ML UDC PO SCH (09:22)
[2017-03-16] MEDS: dilTIAZem HCl 100 MG in D5% in Water 50 ML IVC SCH (12:00)
[2017-03-16] MEDS: Ampicillin/Sulbactam 3,000 MG in 0.9 % Sodium Chloride Mini Bag 100 ML IVPB SCH (16:50)
[2017-03-16] MEDS: *HR* Dabigatran 150 MG CAPSULE PO SCH (17:47)
--- NOTE | 2017-03-16 19:59 | Internal Med Progress Note ---
Date of Encounter: 03/16/17 Time of Encounter: 19:57 (Seen earlier this am) - Assessment and plan (1) Aspiration pneumonia Current Visit: Yes Status: Acute Assessment and plan: Continue current antibiotic. BAL cx neg. Qualifiers: Aspiration pneumonia type: due to regurgitated food Laterality: bilateral Lung location: unspecified part of lung Qualified Code(s): J69.0 - Pneumonitis due to inhalation of food and vomit Code(s): J69.0 - Pneumonitis due to inhalation of food and vomit (2) Aspiration into airway Current Visit: Yes Status: Resolved Assessment and plan: Continue soft diet and nectar thickened liquids Qualifiers: Encounter type: initial encounter Qualified Code(s): T17.908A - Unspecified foreign body in respiratory tract, part unspecified causing other injury, initial encounter (3) Atrial fibrillation with rapid ventricular response Current Visit: Yes Status: Chronic Assessment and plan: Change cardizem to Metoprolol. Pradaxa restarted before transfer from ICU. Stop SQ heparin (4) Hypokalemia Current Visit: Yes Status: Acute Assessment and plan: Replaced. Recheck K+ in am along with Mag - Time Spent With Patient Greater than 35 minutes - Subjective Interval history: Transfered to [facility] from ICU this am after admission for Aspiration PNA and A-Fib RVR . Afib rate controlled now and breathing more comfortably - Constitutional Vitals: Temp Pulse Resp BP Pulse Ox 98.1 F 67 15 134/72 93 03/16/17 15:04 03/16/17 15:04 03/16/17 15:04 03/16/17 15:04 03/16/17 15:04 General appearance: Present: A&O X 0, no acute distress - Head Head exam: Present: atraumatic, normal inspection, normocephalic - Eye Eye exam: Present: EOMI, PERRL, conjuntiva pink, sclera anicteric. Absent: conjunctival injection, scleral icterus Pupils: Present: PERRL - Neck Neck exam general surgery: Present: supple, trachea midline. Absent: lymphadenopathy - Respiratory Respiratory exam: Absent: accessory muscle use, rales, rhonchi, wheezes Additional comments: Coarse lung sounds with scattered rales. - Cardiovascular Cardiovascular exam: Present: RRR, +S1, +S2. Absent: diastolic murmur, gallop, rubs, systolic murmur - GI/Abdominal GI/Abdominal exam: Present: normal bowel sounds, soft, no peritoneal signs. Absent: distended, tenderness - Extremities Exam Extremities exam: Present: warm, radial pulses palpable and symmetrical. Absent : calf tenderness, cyanotic, pedal edema - Neurological Exam Neurological exam: Present: CN II-XII intact, oriented X3, no focal deficits. Absent: pronater drift, facial droop, speech deficit - Skin Skin exam: Present: dry, intact Internal Medicine: Result - Labs CBC & Chem 7: 03/16/17 06:09 03/16/17 16:21 Labs: Short CBC 03/16/17 Range/Units 06:09 WBC 5.9 (4.3-11.1) K/mcL Hgb 11.4 L (11.5-15.4) g/dL Hct 35.2 L (35.3-44.9) % Plt Count 138 L (140-400) K/mcL Neutrophils # 4.2 (1.6-8.9) K/mcL BMP 03/16/17 03/16/17 06:09 16:21 Sodium 141 Potassium 3.0 L 3.4 L Chloride 104 Carbon Dioxide 31 H BUN 7 L Creatinine 0.64 Glucose 131 H Calcium 8.6 - VTE Documentation of Mechanical Device: Intermittent pneumatic compression device Consult Discharge Plan - Plan Referrals: NONE,PCP [Primary Care Provider] -
[2017-03-16] MEDS ORDERED: *HR* Dabigatran 150 MG CAPSULE PO SCH (21:00)
[2017-03-17] MEDS: Ampicillin/Sulbactam 3,000 MG in 0.9 % Sodium Chloride Mini Bag 100 ML IVPB SCH ×5 (00:30→23:24)
[2017-03-17 05:48] LABS: Basophils % 0.4 %; Eosinophils # 0.3 K/mcL (0.0-0.6); Eosinophils % 5.6 %; Hematocrit 34.2 % (35.3-44.9); Hemoglobin 11.1 g/dL (11.5-15.4); Immature Granulocytes % 0.4 % (0-4); Lymphocytes % 18.4 %; Mean Corpuscular HGB Conc 32.5 g/dL (31.6-35.5); Mean Corpuscular Hemoglobin 27.6 pg (28.0-33.3); Mean Corpuscular Volume 85.1 fL (83.0-100.0); Mean Platelet Volume 11.7 fL (9.4-12.4); Monocytes # 0.5 K/mcL (0.0-1.3); Monocytes % 9.1 %; Neutrophils # 3.4 K/mcL (1.6-8.9); Platelet Count 159 K/mcL (140-400); Red Blood Count 4.02 M/mcL (3.82-4.97); Red Cell Distribution Width 13.2 % (11.5-14.5); Segmented Neutrophils % 66.1 %
[2017-03-17 06:02] LABS: BUN/Creatinine Ratio 8 (6-26); Blood Urea Nitrogen 5 mg/dL (8-23); Calcium 8.7 mg/dL (8.6-10.3); Carbon Dioxide 30 mEq/L (23-29); Chloride 105 mEq/L (98-107); Glucose 122 mg/dL (70-105); Osmolality,Calculated 289 (280-300); Potassium 3.2 mEq/L (3.5-5.1); Sodium 140 mEq/L (136-145); eGFR For African Americans > 60 (> 60); eGFR For Non-African Americans > 60 (> 60)
[2017-03-17] MEDS: Potassium Chloride Elixir 20 MEQ/15 ML UDC PO SCH (09:45)
[2017-03-17] MEDS: *HR* Dabigatran 75 MG CAPSULE PO SCH ×2 (09:45→18:52)
[2017-03-17] MEDS: Pantoprazole 40 MG VIAL IVP SCH (09:45)
[2017-03-17] MEDS ORDERED: Potassium Chloride 40 MEQ, Lidocaine 1% 2 ML in D5% in Water 500 ML IVPB ONE (14:38)
--- NOTE | 2017-03-17 21:23 | Internal Med Progress Note ---
Date of Encounter: 03/17/17 Time of Encounter: 21:19 (Seen earlier this afternoon) - Assessment and plan (1) Aspiration pneumonia Current Visit: Yes Status: Acute Assessment and plan: Continue current antibiotic. BAL cx neg. 5 day course of Unasyn per pulm note. Likely she will need Augmentin at d/c for total 10-14 day course. Qualifiers: Aspiration pneumonia type: due to regurgitated food Laterality: bilateral Lung location: unspecified part of lung Qualified Code(s): J69.0 - Pneumonitis due to inhalation of food and vomit Code(s): J69.0 - Pneumonitis due to inhalation of food and vomit (2) Aspiration into airway Current Visit: Yes Status: Resolved Assessment and plan: Continue soft diet and nectar thickened liquids Qualifiers: Encounter type: initial encounter Qualified Code(s): T17.908A - Unspecified foreign body in respiratory tract, part unspecified causing other injury, initial encounter (3) Atrial fibrillation with rapid ventricular response Current Visit: Yes Status: Chronic Assessment and plan: Change cardizem to Metoprolol. Pradaxa restarted before transfer from ICU. (4) Hypokalemia Current Visit: Yes Status: Acute Assessment and plan: Replaced. Recheck K+ in am along with Mag - Subjective Interval history: Transfered to [facility] from ICU yesterday after admission for Aspiration PNA and A- Fib RVR . She had an episode of choking and ultimately required intubation and transfer to the ICU. While in ICU she developed Afib with RVR. She remains rate controlled now and breathing is more comfortably but has severe upper respiratory congestion. She normally take Rhinocort at home and this was d/d on admission to the ICU. Rhinocort/Nasocort restarted - Constitutional Vitals: Temp Pulse Resp BP Pulse Ox 97.9 F 83 12 151/71 93 03/17/17 18:50 03/17/17 18:50 03/17/17 18:50 03/17/17 18:50 03/17/17 18:50 General appearance: Present: A&O X 0, mild distress - Head Head exam: Present: atraumatic, normocephalic - Eye Eye exam: Present: PERRL, conjuntiva pink, sclera anicteric Pupils: Present: PERRL - Neck Neck exam general surgery: Present: supple, trachea midline. Absent: lymphadenopathy - Respiratory Respiratory exam: Present: CTAB. Absent: accessory muscle use, rales, rhonchi, wheezes - Cardiovascular Cardiovascular exam: Present: RRR, +S1, +S2, tachycardia. Absent: diastolic murmur, gallop, rubs, systolic murmur - GI/Abdominal GI/Abdominal exam: Present: normal bowel sounds, soft, no peritoneal signs. Absent: distended, tenderness - Extremities Exam Extremities exam: Present: warm. Absent: calf tenderness, cyanotic, pedal edema - Neurological Exam Neurological exam: Present: CN II-XII intact, oriented X3, no focal deficits. Absent: pronater drift, facial droop, speech deficit - Skin Skin exam: Present: dry, intact Internal Medicine: Result - Labs CBC & Chem 7: 03/17/17 05:16 03/17/17 05:16 Labs: Short CBC 03/17/17 Range/Units 05:16 WBC 5.2 (4.3-11.1) K/mcL Hgb 11.1 L (11.5-15.4) g/dL Hct 34.2 L (35.3-44.9) % Plt Count 159 (140-400) K/mcL Neutrophils # 3.4 (1.6-8.9) K/mcL BMP 03/17/17 05:16 Sodium 140 Potassium 3.2 L Chloride 105 Carbon Dioxide 30 H BUN 5 L Creatinine 0.64 Glucose 122 H Calcium 8.7 - VTE Documentation of Mechanical Device: Intermittent pneumatic compression device Consult Discharge Plan - Plan Referrals: NONE,PCP [Primary Care Provider] -
[2017-03-18] MEDS: Ampicillin/Sulbactam 3,000 MG in 0.9 % Sodium Chloride Mini Bag 100 ML IVPB SCH ×3 (05:53→19:00)
[2017-03-18] MEDS: Potassium Chloride Elixir 20 MEQ/15 ML UDC PO SCH (09:21)
[2017-03-18] MEDS: Pantoprazole 40 MG VIAL IVP SCH (09:21)
[2017-03-18] MEDS: *HR* Dabigatran 75 MG CAPSULE PO SCH ×2 (09:22→18:59)
[2017-03-18] MEDS: Fluticasone Propionate Nasal 50 MCG/SPRAY BOTTLE NS SCH (09:22)
[2017-03-18] MEDS ORDERED: Potassium Chloride 40 MEQ, Lidocaine 1% 2 ML in D5% in Water 500 ML IVPB ONE (11:00)
--- NOTE | 2017-03-18 15:23 | Internal Med Progress Note ---
Date of Encounter: 03/18/17 Time of Encounter: 15:21 - Assessment and plan (1) Aspiration pneumonia Current Visit: Yes Status: Acute Assessment and plan: Continue current antibiotic. BAL cx neg. 5 day course of Unasyn per pulm note. Likely she will need Augmentin at d/c for total 10-14 day course. Start Augmentin tomorrow Qualifiers: Aspiration pneumonia type: due to regurgitated food Laterality: bilateral Lung location: unspecified part of lung Qualified Code(s): J69.0 - Pneumonitis due to inhalation of food and vomit Code(s): J69.0 - Pneumonitis due to inhalation of food and vomit (2) Aspiration into airway Current Visit: Yes Status: Resolved Qualifiers: Encounter type: initial encounter Qualified Code(s): T17.908A - Unspecified foreign body in respiratory tract, part unspecified causing other injury, initial encounter (3) Atrial fibrillation with rapid ventricular response Current Visit: Yes Status: Chronic Assessment and plan: Change cardizem to Metoprolol. Pradaxa restarted before transfer from ICU. Rate controlled. (4) Hypokalemia Current Visit: Yes Status: Acute Assessment and plan: Replaced. Recheck K+ in am along with Mag. - Subjective Interval history: Transfered to [facility] from ICU yesterday after admission for Aspiration PNA and A- Fib RVR . She had an episode of choking and ultimately required intubation and transfer to the ICU. While in ICU she developed Afib with RVR. She remains rate controlled now and breathing is more comfortably but has severe upper respiratory congestion. She normally take Rhinocort at home and this was d/d on admission to the ICU. Rhinocort/Nasocort restarted. She is much less congested today and states she feel better overall. She is breathing comfortably. - Constitutional Vitals: Temp Pulse Resp BP Pulse Ox 97.9 F 60 14 149/80 95 03/18/17 15:05 03/18/17 15:05 03/18/17 15:05 03/18/17 15:05 03/18/17 15:05 General appearance: Present: A&O X 0, mild distress, no acute distress, answers questions appropriately - Head Head exam: Present: atraumatic, normocephalic - Eye Eye exam: Present: EOMI, PERRL, conjuntiva pink, sclera anicteric Pupils: Present: PERRL - Neck Neck exam general surgery: Present: supple, trachea midline. Absent: lymphadenopathy - Respiratory Respiratory exam: Present: CTAB. Absent: accessory muscle use, rales, respiratory distress, rhonchi, wheezes - Cardiovascular Cardiovascular exam: Present: RRR, +S1, +S2. Absent: diastolic murmur, gallop, rubs, systolic murmur - GI/Abdominal GI/Abdominal exam: Present: normal bowel sounds, soft, no peritoneal signs. Absent: distended, tenderness - Extremities Exam Extremities exam: Present: warm. Absent: calf tenderness, cyanotic, pedal edema - Neurological Exam Neurological exam: Present: CN II-XII intact, oriented X3, no focal deficits. Absent: pronater drift, facial droop, speech deficit - Skin Skin exam: Present: dry, intact Internal Medicine: Result - Labs CBC & Chem 7: 03/17/17 05:16 03/18/17 16:06 - VTE Documentation of Mechanical Device: Intermittent pneumatic compression device Consult Discharge Plan - Plan Referrals: NONE,PCP [Primary Care Provider] -
[2017-03-18 16:32] LABS: BUN/Creatinine Ratio 5 (6-26); Blood Urea Nitrogen 5 mg/dL (8-23); Calcium 8.9 mg/dL (8.6-10.3); Carbon Dioxide 33 mEq/L (23-29); Chloride 101 mEq/L (98-107); Glucose 159 mg/dL (70-105); Osmolality,Calculated 283 (280-300); Sodium 136 mEq/L (136-145); eGFR For African Americans > 60 (> 60); eGFR For Non-African Americans 57 (> 60)
[2017-03-19] MEDS: Ampicillin/Sulbactam 3,000 MG in 0.9 % Sodium Chloride Mini Bag 100 ML IVPB SCH ×5 (02:27→23:23)
[2017-03-19] MEDS: *HR* Dabigatran 75 MG CAPSULE PO SCH ×2 (10:41→19:08)
[2017-03-19] MEDS: Potassium Chloride Elixir 20 MEQ/15 ML UDC PO SCH (10:42)
[2017-03-19] MEDS: Fluticasone Propionate Nasal 50 MCG/SPRAY BOTTLE NS SCH (10:42)
--- NOTE | 2017-03-19 14:46 | Internal Med Progress Note ---
Date of Encounter: 03/19/17 Time of Encounter: 14:45 - Assessment and plan (1) Aspiration pneumonia Current Visit: Yes Status: Acute Assessment and plan: Continue current antibiotic. BAL cx neg. 5 day course of Unasyn per pulm note. Likely she will need Augmentin at d/c for total 10-14 day course. Start Augmentin tomorrow Qualifiers: Aspiration pneumonia type: due to regurgitated food Laterality: bilateral Lung location: unspecified part of lung Qualified Code(s): J69.0 - Pneumonitis due to inhalation of food and vomit Code(s): J69.0 - Pneumonitis due to inhalation of food and vomit (2) Aspiration into airway Current Visit: Yes Status: Resolved Assessment and plan: Continue soft diet and nectar thickened liquids Qualifiers: Encounter type: initial encounter Qualified Code(s): T17.908A - Unspecified foreign body in respiratory tract, part unspecified causing other injury, initial encounter (3) Atrial fibrillation with rapid ventricular response Current Visit: Yes Status: Chronic (4) Hypokalemia Current Visit: Yes Status: Acute - Subjective Interval history: Transfered to [facility] from ICU yesterday after admission for Aspiration PNA and A- Fib RVR . She had an episode of choking and ultimately required intubation and transfer to the ICU. While in ICU she developed Afib with RVR. She remains rate controlled now and breathing is more comfortably but has severe upper respiratory congestion. She normally take Rhinocort at home and this was d/d on admission to the ICU. Rhinocort/Nasocort restarted. She is much less congested today and states she feel better overall. She is breathing comfortably. Today she is feeling well sitting in bedside chair breathing comfortably in no acute distress - Constitutional Vitals: Temp Pulse Resp BP Pulse Ox 97.3 F L 64 15 174/65 97 03/19/17 05:20 03/19/17 05:20 03/19/17 05:20 03/19/17 05:20 03/19/17 05:20 General appearance: Present: A&O X 0, mild distress, no acute distress, answers questions appropriately - Head Head exam: Present: atraumatic, normocephalic - Eye Eye exam: Present: PERRL, conjuntiva pink, sclera anicteric Pupils: Present: PERRL - Neck Neck exam general surgery: Present: supple, trachea midline. Absent: lymphadenopathy - Respiratory Respiratory exam: Present: CTAB. Absent: accessory muscle use, rales, rhonchi, wheezes - Cardiovascular Cardiovascular exam: Present: RRR, +S1, +S2. Absent: diastolic murmur, gallop, rubs, systolic murmur - GI/Abdominal GI/Abdominal exam: Present: normal bowel sounds, soft, no peritoneal signs. Absent: distended, tenderness - Extremities Exam Extremities exam: Present: warm, radial pulses palpable and symmetrical. Absent : calf tenderness, cyanotic, pedal edema - Neurological Exam Neurological exam: Present: CN II-XII intact, oriented X3, no focal deficits. Absent: pronater drift, facial droop, speech deficit Internal Medicine: Result - Labs CBC & Chem 7: 03/17/17 05:16 03/18/17 16:06 Labs: BMP 03/18/17 16:06 Sodium 136 Potassium 4.0 Chloride 101 Carbon Dioxide 33 H BUN 5 L Creatinine 0.94 Glucose 159 H Calcium 8.9 - VTE Documentation of Mechanical Device: Intermittent pneumatic compression device Consult Discharge Plan - Plan Referrals: NONE,PCP [Primary Care Provider] -
[2017-03-20] MEDS: Ampicillin/Sulbactam 3,000 MG in 0.9 % Sodium Chloride Mini Bag 100 ML IVPB SCH (06:09)
[2017-03-20 08:16] LABS: Basophils % 0.6 %; Eosinophils # 0.3 K/mcL (0.0-0.6); Eosinophils % 6.6 %; Hematocrit 36.1 % (35.3-44.9); Hemoglobin 11.8 g/dL (11.5-15.4); Immature Granulocytes % 0.6 % (0-4); Lymphocytes # 1.1 K/mcL (0.6-4.6); Lymphocytes % 20.7 %; Mean Corpuscular HGB Conc 32.7 g/dL (31.6-35.5); Mean Corpuscular Hemoglobin 28.2 pg (28.0-33.3); Mean Corpuscular Volume 86.2 fL (83.0-100.0); Mean Platelet Volume 11.3 fL (9.4-12.4); Monocytes # 0.4 K/mcL (0.0-1.3); Monocytes % 8.1 %; Neutrophils # 3.3 K/mcL (1.6-8.9); Platelet Count 164 K/mcL (140-400); Red Blood Count 4.19 M/mcL (3.82-4.97); Red Cell Distribution Width 13.4 % (11.5-14.5); Segmented Neutrophils % 63.4 %
[2017-03-20 08:35] LABS: BUN/Creatinine Ratio 7 (6-26); Blood Urea Nitrogen 6 mg/dL (8-23); Calcium 8.9 mg/dL (8.6-10.3); Carbon Dioxide 32 mEq/L (23-29); Chloride 103 mEq/L (98-107); Glucose 107 mg/dL (70-105); Osmolality,Calculated 290 (280-300); Potassium 3.7 mEq/L (3.5-5.1); Sodium 141 mEq/L (136-145); eGFR For African Americans > 60 (> 60); eGFR For Non-African Americans > 60 (> 60)
[2017-03-20] MEDS: Fluticasone Propionate Nasal 50 MCG/SPRAY BOTTLE NS SCH (09:50)
[2017-03-20] MEDS: *HR* Dabigatran 75 MG CAPSULE PO SCH ×2 (09:50→18:32)
[2017-03-20] MEDS: Potassium Chloride Elixir 20 MEQ/15 ML UDC PO SCH (09:51)
--- NOTE | 2017-03-20 13:51 | Internal Med Progress Note ---
Date of Encounter: 03/20/17 Time of Encounter: 13:51 (Pt seen this am) - Assessment and plan (1) Aspiration pneumonia Current Visit: Yes Status: Acute Assessment and plan: BAL cx neg. 5 day course of Unasyn complete Abx changed to Augmentin. She will need 14 days of total tx. Start Augmentin tomorrow Qualifiers: Aspiration pneumonia type: due to regurgitated food Laterality: bilateral Lung location: unspecified part of lung Qualified Code(s): J69.0 - Pneumonitis due to inhalation of food and vomit Code(s): J69.0 - Pneumonitis due to inhalation of food and vomit (2) Aspiration into airway Current Visit: Yes Status: Resolved Qualifiers: Encounter type: initial encounter Qualified Code(s): T17.908A - Unspecified foreign body in respiratory tract, part unspecified causing other injury, initial encounter (3) Atrial fibrillation with rapid ventricular response Current Visit: Yes Status: Chronic (4) Hypokalemia Current Visit: Yes Status: Acute - Subjective Interval history: Transfered to [facility] from ICU yesterday after admission for Aspiration PNA and A- Fib RVR . She had an episode of choking and ultimately required intubation and transfer to the ICU. While in ICU she developed Afib with RVR. She remains rate controlled now and breathing is more comfortably but has severe upper respiratory congestion. She normally take Rhinocort at home and this was d/d on admission to the ICU. Rhinocort/Nasocort restarted. She is much less congested today and states she feel better overall. She is breathing comfortably. No dewitt since yesterday and doing well. Possibly d/c to home with daughter in am. - Constitutional Vitals: Temp Pulse Resp BP Pulse Ox 97.7 F 62 16 133/65 97 03/20/17 10:00 03/20/17 10:00 03/20/17 10:00 03/20/17 10:03/20/17 10:00 General appearance: Present: A&O X 0, mild distress, no acute distress, answers questions appropriately - Head Head exam: Present: atraumatic, normocephalic - Eye Eye exam: Present: EOMI, PERRL, conjuntiva pink, sclera anicteric Pupils: Present: PERRL - Neck Neck exam general surgery: Present: supple, trachea midline. Absent: full ROM, lymphadenopathy, tenderness, nuchal rigidity, thyromegaly - Respiratory Respiratory exam: Present: CTAB. Absent: accessory muscle use, rales, rhonchi, wheezes - Cardiovascular Cardiovascular exam: Present: RRR, +S1, +S2. Absent: diastolic murmur, gallop, rubs, systolic murmur - GI/Abdominal GI/Abdominal exam: Present: normal bowel sounds, soft, no peritoneal signs. Absent: distended, hepatomegaly, tenderness - Extremities Exam Extremities exam: Present: warm, radial pulses palpable and symmetrical. Absent : calf tenderness, cyanotic, pedal edema - Neurological Exam Neurological exam: Present: CN II-XII intact, oriented X3, no focal deficits. Absent: pronater drift, facial droop, speech deficit - Skin Skin exam: Present: dry, intact Internal Medicine: Result - Labs CBC & Chem 7: 03/20/17 07:53 03/20/17 07:53 Labs: Short CBC 03/20/17 Range/Units 07:53 WBC 5.2 (4.3-11.1) K/mcL Hgb 11.8 (11.5-15.4) g/dL Hct 36.1 (35.3-44.9) % Plt Count 164 (140-400) K/mcL Neutrophils # 3.3 (1.6-8.9) K/mcL BMP 03/20/17 07:53 Sodium 141 Potassium 3.7 Chloride 103 Carbon Dioxide 32 H BUN 6 L Creatinine 0.88 Glucose 107 H Calcium 8.9 - VTE Documentation of Mechanical Device: Intermittent pneumatic compression device Consult Discharge Plan - Plan Referrals: NONE,PCP [Primary Care Provider] -
[2017-03-20] MEDS: Amoxicillin/Clavulanate 400 MG/5 ML UDC PO SCH ×2 (15:38→20:08)
[2017-03-20] MEDS: *HR* Dabigatran 150 MG CAPSULE PO SCH (20:23)
[2017-03-21] MEDS: Amoxicillin/Clavulanate 400 MG/5 ML UDC PO SCH ×3 (00:39→14:40)
[2017-03-21] MEDS: Fluticasone Propionate Nasal 50 MCG/SPRAY BOTTLE NS SCH (10:08)
[2017-03-21] MEDS: Potassium Chloride Elixir 20 MEQ/15 ML UDC PO SCH (10:08)
[2017-03-21] MEDS: *HR* Dabigatran 75 MG CAPSULE PO SCH (10:08)
[2017-03-21 12:14] VITALS: BP 140/78
--- NOTE | 2017-03-21 14:08 | Discharge Summary ---
Date of Encounter: 03/21/17 Time of Encounter: 13:58 - Discharge Diagnosis (1) Aspiration pneumonia Priority: Primary Status: Acute Comments: She finished 5 days of empiric Unasyn therapy and was transitioned to Augmentin prior to discharge. She will need 3 more days of antibiotics for a total of 10 days therapy. At the time of discharge her lungs are clear to auscultation and she is not requirng supplemental oxygen. Qualifiers: Aspiration pneumonia type: due to regurgitated food Laterality: bilateral Lung location: unspecified part of lung Qualified Code(s): J69.0 - Pneumonitis due to inhalation of food and vomit Code(s): J69.0 - Pneumonitis due to inhalation of food and vomit (2) Aspiration into airway Priority: Primary Status: Acute Comments: She has a history of dysphagia and choked causing her initial admission to ICU. She was empirically started on Unasyn prior to discharge from ICU. She was kept on Unasyn for 5 days at the recommendation of pulmonology. Qualifiers: Encounter type: initial encounter Qualified Code(s): T17.908A - Unspecified foreign body in respiratory tract, part unspecified causing other injury, initial encounter (3) Atrial fibrillation with rapid ventricular response Priority: Secondary Status: Chronic Comments: She has a history of A-fib and while in the ICU she developed A-Fib with RVR. Cardiology saw her and started Amiodarone. Initially she was started on IV Amiodarone and then transitioned to PO Amiodarone 200 mg BID. She was not rate controlled after transfer out of the ICU so PO Metoprolol was started. She remained rate controlled and when discharged was transitioned backto her home dose of Bisoprolol in addition to PO Amiodarone. She will need f/u with cardiology following discharge. (4) Hypokalemia Priority: Secondary Status: Acute Comments: Resolved at time of discharge following repletion. (5) Weakness Priority: Secondary Status: Chronic Comments: She has generalized weakness at baseline, but following her ICU admission and subsequent [facility] admission she was profoundly week and will need ongoing PT/OT. - Discharge Medications Prescriptions: Amoxicillin/Clavulanate [AUGMENTIN Susp] 400 mg PO Q6HR 3 Days #60 ml Home Medications: Bisoprolol Fumarate 2.5 mg PO DAILY 03/13/17 [History] Budesonide [Rhinocort Allergy] 1 spr NS DAILY 03/13/17 [History] Calcium Carbonate [Tums] 1,000 mg PO DAILY 03/13/17 [History] Cholecalciferol (Vitamin D3) [Vitamin D3] 1,000 unit PO DAILY 03/13/17 [History] Dabigatran Etexilate Mesylate [Pradaxa] 110 mg PO BID 03/13/17 [History] Travoprost [Travatan Z] 1 drop OP HS 03/13/17 [History] Amoxicillin/Clavulanate [AUGMENTIN Susp] 400 mg PO Q6HR 3 Days #60 ml 03/21/17 [ Rx] Allergies/Adverse Reactions: 3 Allergy/AdvReac Type Severity Reaction Status Date / Time Sulfa (Sulfonamide Allergy See Verified 03/12/17 20:00 Antibiotics) Comments Date of admission: 03/12/17 22:05 Primary care physician: PCP NONE Consults: Cardiology 03/13/17 00:04 Consult to Critical Care [CONS] Routine Consulting Provider: Pulm Crit Care & Sleep Becka Reason for Consult: On ventilator. Has choking and aspiration, may need brochoscope Call Completed: No 03/13/17 14:24 Consult to Teams[employer] Developer [CONS] Routine Reason for SW Consult: from Abhilash Consult to Speech Therapy [CONS] Stat Comment: Evaluate, develop and implement POC Reason for Consult: Choking episode Call Completed: No 03/16/17 09:36 Consult to Physical Therapy [CONS] Routine Comment: Evaluate, develop and implement POC Reason for Consult: has HH is having weakness 03/16/17 09:37 Consult to Occupational Therapy [CONS] Routine Comment: Evaluate, develop and implement POC Reason for Consult: has HH feels very weak and has had falls Discharging clinician: Hansel Aquino - Patient Status Disposition: Home, Self-Care Condition: Critical - Discharge Instructions Instructions: Atrial Fibrillation (DC), Acute Respiratory Distress Syndrome (DC ), Pneumonia (DC) Follow Up With: NONE,PCP [Primary Care Provider] - Hospital course: Ms. Garcia is a 81 year old woman initially admitted to the ICU following a choking episode. She was empirically started on Unasyn for presumed risk of aspiration PNA. Pulmonary medicine recommended 5 days of Unasyn and then Augmentin for 10 days. She has A-Fib and while in the ICU developed A-Fib with RVR requiring a cardiology consult and she was started on Amiodarone. After discharge from the ICU she was not rate controlled so PO Metoprolol was added. She was rate controlled and at the time of discharge Metoprolol was discontinued and her home dose of Bisoprolol was restarted. She was discharged on Bisoprolol and PO amiodarone. She will need f/u with cardiology. Time spent discussing smoking cessation with patient: more than 10 minutes - Time Spent with Patient Total time spent providing and/or coordinating discharge services: Greater than 30 minutes - Constitutional Vitals: Temp Pulse Resp BP Pulse Ox 97.1 F L 91 16 140/78 97 03/21/17 12:12 03/21/17 12:12 03/21/17 12:12 03/21/17 12:12 03/21/17 12:12 General appearance: Present: cachectic, A&O X 0, mild distress, no acute distress, answers questions appropriately - Head Head exam: Present: atraumatic, normocephalic - Eye Eye exam: Present: EOMI, PERRL, conjuntiva pink, sclera anicteric - ENT ENT exam: Present: mucous membranes moist, normal oropharynx - Respiratory Respiratory exam: Present: accessory muscle use, CTAB. Absent: rales, respiratory distress, rhonchi, stridor, wheezes, tachypnea - Cardiovascular Cardiovascular exam: Present: irregular rhythm, +S1, +S2. Absent: bradycardia, gallop, JVD, rubs, tachycardia - GI/Abdominal GI/Abdominal exam: Present: soft. Absent: firm, guarding, hyperactive bowel sounds, hypoactive bowel sounds, rebound, rigid, tenderness, no peritoneal signs - Neurological Exam Neurological exam: Present: altered, CN II-XII intact, oriented X3, no focal deficits - Psychiatric Psychiatric exam: Present: normal affect, normal mood - Skin Skin exam: Present: dry, intact, warm - VTE Documentation of Mechanical Device: Intermittent pneumatic compression device
== END 2017-03-21 15:10 | disposition home or self-care (01) | DRG 166 ==
LOC: EMEROO 19:38 → ICNU 22:05 → SUATTDRO 22:05 → ICNU 23:15 → 3ANU 03-15 17:29
PROVIDERS: ADMIT Internal Medicine; ATTEND Internal Medicine